=== PATIENT | female | born 1950 | race Caucasian/White ===

== ENCOUNTER 2022-01-09 13:09 | Emergency (ER) | payer OTHER, MEDICARE ==
[~2022-01-09] VITALS: Ht 170.2 cm; Wt 102.1 kg
== END 2022-01-09 14:47 | disposition home or self-care (01) ==
LOC: ER 13:09
DX: S06.0X0A Concussion without loss of consciousness, initial encounter (principal); S20.02XA Contusion of left breast, initial encounter; R23.4 Changes in skin texture; W01.0XXA Fall on same level from slipping, tripping and stumbling without subsequent striking against object, initial encounter
CPT/HCPCS: 70450; 99283-25

== ENCOUNTER 2022-01-17 12:40 | Inpatient (IN) | payer OTHER, MEDICARE ==
[~2022-01-17] VITALS: Ht 167.6 cm; Wt 115.6 kg
[2022-01-17 14:14] LABS: Source, Urine Foley catheter
[2022-01-17 14:18] LABS: Bilirubin, Urine Neg (Neg); Blood, Urine Neg (Neg); Glucose Qualitative, Urine Neg (Neg); Ketones, Urine Neg (Neg); Leukocyte Esterase, Urine Neg (Neg); Nitrite, Urine Neg (Neg); Protein, Urine 1+ (Neg); Urobilinogen, Urine NORM (Normal)
[2022-01-17] MEDS ORDERED: AMLO10 PO (14:22)
[2022-01-17] MEDS ORDERED: FLUT.05NI (14:23)
[2022-01-17] MEDS ORDERED: SERT50 PO (14:23)
[2022-01-17] MEDS ORDERED: LISI20 PO (14:23)
[2022-01-17] MEDS ORDERED: FURO20 PO (14:23)
[2022-01-17 14:24] LABS: Appearance, Urine Clear (Clear); Color, Urine Pale Yellow (P-Yellow)
[2022-01-17] MEDS ORDERED: METF500C PO (14:24)
[2022-01-17] MEDS ORDERED: SPIR50 PO (14:24)
[2022-01-17] MEDS ORDERED: OMEP20ER PO (14:24)
[2022-01-17] MEDS ORDERED: ATOR10 PO (14:24)
[2022-01-17 16:04] LABS: Albumin, Blood 3.5 g/dL (3.4-5.0); Albumin/Globulin Ratio 1.2 (0.8-1.8); Bilirubin, Total 0.3 mg/dL (0.1-1.0); Bun/Creatinine Ratio 19.5 (12.0-20.0); Calcium, Blood 8.6 mg/dL (8.5-10.1); Creatinine, Blood 1.18 mg/dL (0.40-1.00); Globulin, Blood 2.8 g/dL (2.2-4.0); Potassium, Blood 3.7 mmol/L (3.5-5.5); Total Protein, Blood 6.3 g/dL (6.4-8.2)
--- NOTE | 2022-01-17 16:36 | NUR ---
PT ARRIVED TO THE ROOM VIA GURNEY. PT IS PAINFUL AFTER TRANSFER TO BED, SHE IS TEARFUL. FAMILY AT BEDSIDE FOR COMFORT. WILL CONTINUE TO MONITOR.
--- NOTE | 2022-01-17 16:45 | NUR ---
UNABLE TO ASSESS PT'S POSTERIOR FOR PRESSURE INJURIES OR WOUNDS AT TIME OF ADMIT R/T INTOLERANCE OF MOVEMENT A RESULT OF PAIN. PT UNABLE TO TOLERATE REPOSITIONING EVEN WHEN PRE-MEDICATED FOR MOVEMENT.
--- NOTE | 2022-01-17 18:15 | NUR ---
PT HAS A 2.4 SECOND PAUSE IN HER HEART RATE. PT ASYMPTOMATIC.
[2022-01-17 18:17] LABS: BASOPHILS ABSOLUTE AUTO 0.04 K/mm3 (0.00-0.23); BASOPHILS PERCENT AUTO 0 % (0-2); EOSINOPHILS ABSOLUTE AUTO 0.04 K/mm3 (0.00-0.68); EOSINOPHILS PERCENT AUTO 0 % (0-6); Hematocrit 32.1 % (33.0-51.0); Hemoglobin 10.2 g/dL (11.5-16.0); IMMATURE GRAN ABSOLUTE AUTO 0.09 K/mm3 (0.00-0.10); IMMATURE GRAN PERCENT AUTO 1 % (0-1); LYMPHOCYTES ABSOLUTE AUTO 1.48 K/mm3 (0.84-5.20); LYMPHOCYTES PERCENT AUTO 13 % (21-46); MONOCYTES ABSOLUTE AUTO 0.77 K/mm3 (0.16-1.47); MONOCYTES PERCENT AUTO 7 % (4-13); Mean Corpuscular HGB 30.2 pg (26.0-34.0); Mean Corpuscular HGB Conc 31.8 g/dL (31.5-36.5); Mean Corpuscular Volume 95 fL (80-100); Mean Platelet Volume 9.6 fL (9.1-12.4); NEUTROPHILS ABSOLUTE AUTO 8.68 K/mm3 (1.96-9.15); NEUTROPHILS PERCENT AUTO 78 % (41-73); Platelet Count 194 K/mm3 (150-400); RDW Coefficient Variation 13.6 % (11.7-14.2); RDW Standard Deviation 47.5 fL (35.1-46.3); Red Blood Cell Count 3.38 M/mm3 (3.80-5.20)
[2022-01-17 18:35] LABS: International Normalized Ratio 1.04; Prothrombin Time Results 10.9 Sec (9.7-11.5)
[2022-01-17] MEDS ORDERED: Cyclobenzaprine5 MG PO (19:24)
--- NOTE | 2022-01-17 19:39 | NUR ---
SHIFT SUMMARY PAIN HAS BEEN DIFFICULT TO MANAGE SINCE PT ARRIVED TO THE ROOM. SHE HAS REQUIRED IV PAIN MEDICATION AND FLEXERIL. BUCKS TRACTION IN PLACE FOR COMFORT AND TO DECREASE SPASMS. DR. ENG ROUNDED ON PT THIS EVENING, PLAN FOR SURGERY TOMORROW AND NPO AFTER MN. FAMILY WAS PRESENT AT THE BEDSIDE FOR SUPPORT. REPORT GIVEN TO MENDY FAULKNER.
[2022-01-17] MEDS ORDERED: Robaxin750 MG (22:00)
[2022-01-17 22:29] LABS: Influenza A, PCR NEGATIVE (NEGATIVE); Influenza B, PCR NEGATIVE (NEGATIVE); Resp Syncytial Virus, PCR NEGATIVE (NEGATIVE); SARS-Cov-2 (COVID-19) PCR, MMC NEGATIVE (NEGATIVE)
--- NOTE | 2022-01-18 04:20 | NUR ---
SUMMARY PT PAIN HAS BEEN MANAGED VERY WELL THROUGHOUT SHIFT. PT HAS BEEN SLEEPING COMFORTABLY T/ OUT SHIFT. PT REMAINS IN BUCKS TRACTION. PT STANFORD DRAINING TO GRAVITY. PT CURRENTLY SLEEPING IN NO DISTRESS. CALL LIGHT IN REACH.
[2022-01-18 04:44] LABS: Hematocrit 28.8 % (33.0-51.0); Hemoglobin 9.2 g/dL (11.5-16.0); Mean Corpuscular HGB Conc 31.9 g/dL (31.5-36.5); Mean Corpuscular Volume 94 fL (80-100); Mean Platelet Volume 9.8 fL (9.1-12.4); Platelet Count 174 K/mm3 (150-400); RDW Coefficient Variation 13.6 % (11.7-14.2); RDW Standard Deviation 46.5 fL (35.1-46.3); Red Blood Cell Count 3.07 M/mm3 (3.80-5.20); White Blood Cell Count 6.93 K/mm3 (4.00-11.30)
[2022-01-18 05:17] LABS: Albumin, Blood 3.1 g/dL (3.4-5.0); Albumin/Globulin Ratio 1.1 (0.8-1.8); Bilirubin, Total 0.7 mg/dL (0.1-1.0); Bun/Creatinine Ratio 18.1 (12.0-20.0); Calcium, Blood 8.6 mg/dL (8.5-10.1); Creatinine, Blood 1.38 mg/dL (0.40-1.00); Globulin, Blood 2.7 g/dL (2.2-4.0); Total Protein, Blood 5.8 g/dL (6.4-8.2)
--- NOTE | 2022-01-18 12:42 | NUR ---
DR. NEVILLE NOTIFIED THAT PT HAD A 2.4 SECOND PAUSE IN HER HEART RHYTHM 01/17/22 AT 1811. PT WAS ASYMPTOMATIC. WILL CONTINUE TO MONITOR FOR FUTHER PAUSES/TELE EVENTS. NO FURTHER EVENTS PER KATIA DEVINE PLODDING OPERATOR.
--- NOTE | 2022-01-18 15:41 | NUR ---
PT LEFT ROOM FOR DAY SURGERY AT THIS TIME. DAY MAINTENANCE SHOP MANAGER NOTIFIED THAT PT HAD A 2.4 SECOND PAUSE IN HEART RHYTHM YESTERDAY BUT NO EVENTS SINCE THAT TIME. DR. KELIN FOREMAN AND DR. ENG WAS ALSO NOTIFIED.
--- NOTE | 2022-01-18 17:34 | NUR ---
SHIFT SUMMARY PT IS IN SURGERY AT THIS TIME. PAIN HAS BEEN MANAGED WITH MORPHINE, FLEXERIL AND OXYCODONE THIS SHIFT. BUCKS TRACTION HAS ALSO HELPED TO REDUCE PAIN AND SPASMS. PT HAS BEEN DROWSY BUT ORIENTED T/O THE DAY. PT IS UNABLE TO TOLERATE REPOSITIONING R/T PAIN EVEN WHEN PREMEDICATED. FAMILY HAS BEEN AT THE BEDSIDE FOR SUPPORT.
--- NOTE | 2022-01-18 22:27 | NUR ---
1929 RECEIVED PT. FROM RECOVERY. STARTED ON LIQUID DIET, PT. TOLERATED WELL. DINNER SERVED GIVEN TO PT. WHICH PT ATE SOME, TOLERATED WELL. 2209 PT. NOTED SNORING & O2 SAT DROPPED TO 89% ON 2 L VIA NC, O2 RAISED TO 3 L WITH SAT OF 90%, RAISED O2 TO 4 L WHICH PT. SAID SHE IS FINE, O2 SAT AT 93% - 95%.
--- NOTE | 2022-01-18 22:33 | NUR ---
2149 ARIANNA SIGN ARTIST CALLED TO NOTIFY OF 12 BEATS VTACH WHICH WAS ONLY READING 1 LEAD, I FIXED LEAD CONNECTIONS & ASKED SIGN ARTIST HOW IT WAS DOING, PER SIGN ARTIST " IT IS READING WONDERFUL". BROUGHT UP SITUATION TO ED FAULKNER ( COORDINATOR & TO CN WELL, IF I NEEDED TO CALL MD FOR THIS, I WAS TOLD BY BOTH " NO ", WILL CONTINUE TO MONITOR. PT. WAS NOTED ASYMPTOMATIC & DENIES ANY CHEST PAIN, SOB.
--- NOTE | 2022-01-19 02:40 | NUR ---
URINE OUTPUT ACCIDENTALLY ENTERED AT VOIDED AMOUNT, IT IS SUPPOSE TO BE AT THE CATHETER OUTPUT OF 280 ML.
--- NOTE | 2022-01-19 02:41 | NUR ---
O2 LOWERED TO 3 L VIA NC, O2 SAT OF 93%.
--- NOTE | 2022-01-19 02:49 | NUR ---
SHIFT SUMMARY: PT. AOX4, COMPLAINTS OF R HIP PAIN MEDICATED PER EMAR. PT. SLEEPING WELL, NOTED TALKING WILE ASLEEP SEVERAL TIMES, WHEN PT. WOKE UP SHE TOLD ME SHE DOES THAT A LOT OF TIMES WHEN SLEEPING. FREQUENT ROUNDS DONE. PT. REPOSITIONS HER UPPER PART OF THE BODY BY HERSELF. ABLE TO MAKE NEEDS KNOWN, EDUCATED ON CALLING FOR ANY NEED USING THE CALL LIGHT, PT. VERBALIZED UNDERSTANDING, CLWR.POLAR PACK TO R HIP. O2 LOWERED AT 2L/MIN. WITH SAT 92%. NO S/S OF RESP./CV DISTRESS NOTED. APPEARS SLEEPING COMFORTABLY WITH UNLABORED BREATHING.WILL CONTINUE TO MONITOR.
--- NOTE | 2022-01-19 04:30 | NUR ---
PT. REFUSED TO BE TURNED, PT. CAN MOVE HER UPPER BODY & REPOSITION HERSELF. CATHETER CARE DONE WITH READYCLEANSE WIPES, PT. TOLERATED WELL.
[2022-01-19 04:50] LABS: Hematocrit 27.3 % (33.0-51.0); Hemoglobin 8.6 g/dL (11.5-16.0); Mean Corpuscular HGB 29.8 pg (26.0-34.0); Mean Corpuscular HGB Conc 31.5 g/dL (31.5-36.5); Mean Corpuscular Volume 95 fL (80-100); Platelet Count 157 K/mm3 (150-400); RDW Coefficient Variation 13.6 % (11.7-14.2); RDW Standard Deviation 46.4 fL (35.1-46.3); Red Blood Cell Count 2.89 M/mm3 (3.80-5.20); White Blood Cell Count 11.84 K/mm3 (4.00-11.30)
[2022-01-19 05:11] LABS: Bun/Creatinine Ratio 19.4 (12.0-20.0); Calcium, Blood 8.3 mg/dL (8.5-10.1); Creatinine, Blood 1.34 mg/dL (0.40-1.00); Potassium, Blood 4.4 mmol/L (3.5-5.5)
--- NOTE | 2022-01-19 13:44 | NUR ---
01/19/22 1344 Marissa Moore VERIFICATIONS: EDIT CHART.
--- NOTE | 2022-01-19 17:19 | NUR ---
INSULIN ALL DOSES OF INSULIN ADMINISTERED TODAY BY A BEHAVIOR SUPPORT SPECIALIST WERE VERIFIED BY THIS RN AND A SECOND RN NOTED IN THE ADMINISTRATION LOG.
--- NOTE | 2022-01-19 19:15 | NUR ---
SHIFT SUMMARY POD1 R HIP FX REPAIR, A/OX4, VSS, TOLERATING PO, PAIN MANAGED WITH SOME IMPROVEMENT TODAY USING ONLY 1 DOSE OF IV MORPHINE, PT WAS A LITTLE ANXIOUS AT THE BEGINNING OF THE SHIFT BUT THIS WAS IMPROVED AFTER WORKING WITH PT/OT AND IMPROVED PAIN. NO ACUTE EVENTS THIS SHIFT, CALL LIGHT IN REACH, REPORT GIVEN TO MENDY FAULKNER.
[2022-01-20 04:30] LABS: Hematocrit 23.5 % (33.0-51.0); Hemoglobin 7.3 g/dL (11.5-16.0); Mean Corpuscular HGB 29.4 pg (26.0-34.0); Mean Corpuscular HGB Conc 31.1 g/dL (31.5-36.5); Mean Corpuscular Volume 95 fL (80-100); Mean Platelet Volume 10.4 fL (9.1-12.4); Platelet Count 137 K/mm3 (150-400); RDW Coefficient Variation 13.8 % (11.7-14.2); RDW Standard Deviation 47.5 fL (35.1-46.3); Red Blood Cell Count 2.48 M/mm3 (3.80-5.20); White Blood Cell Count 9.62 K/mm3 (4.00-11.30)
--- NOTE | 2022-01-20 04:39 | NUR ---
COBOL PROGRAMMER SUMMARY NO ACUTE CHANGES THIS SHIFT. PT AAOX4 AND PLEASANT. MEDICATED FOR HIP PAIN X1 AT BEDTIME WITH GOOD PAIN RELIEF. IV ABX ORDERED. PT HAS SLEPT WELL THROUGH THE NIGHT. STANFORD CATH DRAINING YELLOW URINE. BP ON THE SOFT SIDE BUT VITALS STABLE. WILL CONTINUE TO MONITOR.
[2022-01-20 04:47] LABS: Bun/Creatinine Ratio 20.6 (12.0-20.0); Calcium, Blood 8.1 mg/dL (8.5-10.1); Creatinine, Blood 1.6 mg/dL (0.40-1.00); Potassium, Blood 3.9 mmol/L (3.5-5.5)
--- NOTE | 2022-01-20 09:39 | NUR ---
AGREE WITH ADMINISTRATIVE TECHNICIAN ASSESSMENT
[2022-01-20 09:51] LABS: Percent Saturation 8.2 % (15.0-50.0)
--- NOTE | 2022-01-20 14:10 | NUR ---
discharged to home
--- NOTE | 2022-01-20 16:22 | NUR ---
1430 NOTIFIED BY PCU OPERATOR SUPPLY THAT PATIENT HEARTRATE IS 130-140 AND IS IN AFIB. PATIENT 2 PERSON STAND PIVOT RETURN TO BED. SPOKE WITH DR NEVILLE AND NEW ORDERS RECEIVED
--- NOTE | 2022-01-20 16:28 | NUR ---
1455 BP 83/56. HR 120'S TO 140'S. PT WITH HOB FLAT. PT DENIES DIZZINESS, SOB. SPOKE WITH DR NEVILLE REGARDING HR AND BP. ORDERS RECEIVED
--- NOTE | 2022-01-20 16:30 | NUR ---
1545 TRANSFERRED VIA BED TO PCU 18. PTS DAUGHTERS PRESENT AT TIME OF PATIENT TRANSFER.
--- NOTE | 2022-01-20 16:36 | NUR ---
CHANGED AQUACEL DRESSING PER DOCTOR'S ORDERS. SURGICAL INCISION ASSESSED. SKIN IS PINK WITH SOME BRUISING. MILD EDEMA IS SEEN. BRANDON ARE INTACT. INCISION IS CLEAN WITH NO EVIDENCE OF INFECTION. PATIENT TOLERATED DRESSING CHANGE WELL.
--- NOTE | 2022-01-20 17:45 | NUR ---
1249 ADMINISTERED 1 TABLET OF 5MG ROXICODONE. UNABLE TO WASTE IN PYXIS
--- NOTE | 2022-01-20 18:31 | NUR ---
PT ARRIVED TO [facility] APROX 1550 THIS AFTERNOON FOR DX OF AFIB RVR. HR 110-120 ON ARRIVAL. 1L NS BOLUS RUNNIG. SEE VS. PT IS A&OX4 WITH FAMILY AT BEDSIDE. FLUID BOLUS COMPLETED AND HR BEGAN INCREASING TO 130-140s, DR NEVILLE CONTACTED AT 1709 AND ORDERS FOR CARDIZEM GTT RECEIVED. UNABLE TO START 2ND IV AT THIS TIME. PT MEDICATED FOR PAIN PER EMAR. CARDIZEM GTT STARTED ONCE RECEIVED FROM THE PHARMACY. DR NEVILLE AT BEDSIDE TO EVALUATE AND SPEAK WITH PT AND HER FAMILY. PT STARTED ON XERALTO, FIRST DOSE GIVEN TONIGHT PER EMAR. WILL CONTINUE TOMONITOR AND GIVE REPORT TO ONCOMING RN.
--- NOTE | 2022-01-20 22:37 | NUR ---
PT TX FROM SURG FLOOR TO PCU FOR LOW BP AND NEW AFIB RVR. PT PLACED ON CARD GTT AT 15MG/HR, AND STARTED PO METPROLOL. THIS RN GAVE THE METOPROLOL, AND SHORTLY AFTER ADMINISTRATION, PT BEGAN TO HAVE PAUSES THAT INITIALLY STARTED OUT AT ABOUT 2 SECONDS EACH. PT CLAIMS TO BE ASYMPTOMATIC, AND BP REMAINS SLIGHTLY LOW. PAUSES CONTINUED TO HAPPEN, AND WOULD BE FOR A LONGER AMOUNT OF TIME. RN DECIDED TO TURN OFF CARD GTT ALTOGETHER. TELE NOTIFIED RN OF LONGEST PAUSE OF 5.39 SECONDS - PT STILL ASYMPTOMATIC. WILL CONTINUE TO KEEP CARD GTT OFF AT THIS TIME. WILL CONTINUE TO MONTIOR.
[2022-01-21 03:36] LABS: Mean Corpuscular HGB 29.8 pg (26.0-34.0); Mean Corpuscular HGB Conc 31.8 g/dL (31.5-36.5); Mean Corpuscular Volume 94 fL (80-100); Mean Platelet Volume 10.4 fL (9.1-12.4); Platelet Count 142 K/mm3 (150-400); Red Blood Cell Count 2.35 M/mm3 (3.80-5.20); White Blood Cell Count 8.17 K/mm3 (4.00-11.30)
[2022-01-21 03:54] LABS: Calcium, Blood 7.4 mg/dL (8.5-10.1); Creatinine, Blood 1.65 mg/dL (0.40-1.00); Potassium, Blood 3.8 mmol/L (3.5-5.5)
--- NOTE | 2022-01-21 06:18 | NUR ---
SHIFT SUMMARY PT RESTED WELL THROUGH THE NIGHT. ALERT AND ORIENTED, ABLE OT MAKE NEEDS KNOWN. COOPERATIVE WITH PLAN OF CARE. TELE READS AFIB - RATE BETTER CONTROLLED AT 80-90'S. STOPPED DILT GTT - SEE PREVIOUS NOTE. PO METOPROLOL. VOIDS TO BED SYLVESTER, INCISIONAL SITE/DRESSING C/D/I. MINIMAL PAIN - SEE EMAR. NO BM. IVF. SATS >93% ON 3-4LNC. VSS. CALL LIGHT WITHIN REACH, BED IN LOWEST POSITOIN. WILL CONTINUE TO MONITOR.
[2022-01-21 08:48] LABS: Free Thyroxine 1.45 ng/dL (0.70-1.60)
[2022-01-21 08:50] LABS: Triiodothyronine, Free 1.37 pg/mL (2.18-3.98)
--- NOTE | 2022-01-21 16:01 | NUR ---
SHIFT SUMMARY Pt has been a/o x 4 today. This morning she was fatigued and weak but still oriented. Dr Penn came to see her and ordered 1 unit of blood and iron both of which were infused after IV access was established. Her daughters arrived first thing this morning, they coordinated a notary to come to the room for their mom to sign some paperwork that they brought with them. The daughters were very assertive with their need for updated information about their mom. After their questions were answered they left and have since returned and have been updated again and are now at the bedside. Pt's aquacell dressings were changed as they were saturated with serous drainage. A powerglide was placed this morning and remains patent with IV fluids running as ordered. Since the pt is much more awake and feeling better this afternoon, this nurse reached out to PT who came and worked with the pt on some exercises in the bed. Around lunch time the pt had not voided and was placed on the bedpan, she was not able to void on the dickson but after it was removed she had an incontinent episode and linens were changed and a clean brief was placed, the pt reports that at baseline she is continent of B/B. She has had a poor appetite thus far today but reports that she does feel more hungry this afternoon. She is able to make her needs known and calls for help when needed.
[2022-01-21 17:36] LABS: Hematocrit 25.6 % (33.0-51.0); Hemoglobin 8.1 g/dL (11.5-16.0)
--- NOTE | 2022-01-22 06:06 | NUR ---
SHIFT SUMMARY: SINUS RHYTHYM WITH NO EVENTS ON TELEMETRY OVERNIGHT. PT A&O WITH OCCASSIONAL UNUSUAL REMARKS AND PT SLEEP-TALKS. PT REMOVED O2 NASAL CANULA REPORTING DRY, IRRITATED NOSE AND DESATTED TO 78%. O2 WAS REPLACED WITH HUMIDIFICATION. PT RECOVERED QUICKLY AND WAS ASYMPTOMATIC. SURGICAL INCISION IS CLEAN, BRANDON INTACT, NO REDNESS OR LOCALIZED WARMTH NOTED ON ASSESSMENT. DRESSING WAS CHANGED DUE TO PREVIOUS DRESSING BEING SATURATED WITH CLEAR DRAINAGE. PT DID NOT GET UP FROM BED OVERNIGHT, BUT ROLLS WELL. PT HAS NOT HAD BM SINCE 01/16. PT REPORTS FEELING THE NEED TO HAVE BM AND BOWEL SOUNDS ARE ACTIVE, BUT SHE IS UNABLE TO GO. PAIN WAS WELL CONTROLLED WITH JUST ONE OXYCODONE OVERNIGHT.
[2022-01-22 06:55] LABS: Hematocrit 22.4 % (33.0-51.0); Hemoglobin 7.1 g/dL (11.5-16.0); Mean Corpuscular HGB 29.3 pg (26.0-34.0); Mean Corpuscular HGB Conc 31.7 g/dL (31.5-36.5); Mean Corpuscular Volume 93 fL (80-100); Mean Platelet Volume 9.9 fL (9.1-12.4); Platelet Count 166 K/mm3 (150-400); RDW Coefficient Variation 15.9 % (11.7-14.2); RDW Standard Deviation 53.8 fL (35.1-46.3); Red Blood Cell Count 2.42 M/mm3 (3.80-5.20)
[2022-01-22 07:15] LABS: Calcium, Blood 7.9 mg/dL (8.5-10.1); Creatinine, Blood 1.31 mg/dL (0.40-1.00); Magnesium, Blood 2.1 mg/dL (1.6-2.4); Potassium, Blood 3.7 mmol/L (3.5-5.5)
[2022-01-22 16:53] LABS: Hematocrit 27.6 % (33.0-51.0); Hemoglobin 8.9 g/dL (11.5-16.0)
--- NOTE | 2022-01-22 17:11 | NUR ---
SHIFT SUMMARY Pt has been a/o x 4 all day. She has been much more awake and has had a better appetite today as well. She did receive another unit of RBCs this morning along with her IV iron. IV fluids have been DCd as she has had good PO fluid intake. Her chest xray and CT were both done and Dr Penn discussed the results with the 2 daughters. Pt has been voiding on the bedpan and calling appropriately when she needs to go. PT worked with her today as well. This afternoon she did c/o pain to her right hip and was medicated per emar. Shortly after that she was found sitting on the side of the bed and the pt reported that she "just needed to move around". The nurse reminded her to call for assist if she needs to move around and that she is still toe touch weight bearing. The pt was able to lay back in the bed and re-position herself in bed. She seems to be improving today. Her daughters are at the bedside and have been updated with todays events and have spoken with Dr Penn. Pt is able to make her needs known and has her call light in reach.
[2022-01-23 03:39] LABS: Hematocrit 26.8 % (33.0-51.0); Hemoglobin 8.6 g/dL (11.5-16.0); Mean Corpuscular HGB Conc 32.1 g/dL (31.5-36.5); Mean Corpuscular Volume 90 fL (80-100); Mean Platelet Volume 9.9 fL (9.1-12.4); NRBC ABSOLUTE 0.03 K/mm3 (0.00-0.02); NRBC Auto 0.3 /100 WBC (0.0-0.2); Platelet Count 186 K/mm3 (150-400); RDW Coefficient Variation 15.5 % (11.7-14.2); RDW Standard Deviation 50.5 fL (35.1-46.3); Red Blood Cell Count 2.97 M/mm3 (3.80-5.20); White Blood Cell Count 8.71 K/mm3 (4.00-11.30)
[2022-01-23 04:00] LABS: Bun/Creatinine Ratio 26.3 (12.0-20.0); Calcium, Blood 8.5 mg/dL (8.5-10.1); Creatinine, Blood 1.14 mg/dL (0.40-1.00); Potassium, Blood 3.6 mmol/L (3.5-5.5)
--- NOTE | 2022-01-23 04:09 | NUR ---
SHIFT SUMMARY: NO ACUTE CHANGES OVERNIGHT. VSS. PT PAIN CONTROLLED WITH 2 DOSES OXYCODONE. PT WAS ABLE TO PIVOT TO BEDSIDE COMMODE WITH 2 ASSIST, WITHIN LIMITS OF TOE TOUCH WEIGHT-BEARING. PT CONTINUES TO BE UNABLE TO HAVE BM. IT HAS BEEN 1 WK AND AGGRESSIVE BOWEL MANAGEMENT SHOULD BE INITIATED-WILL PASS ALONG TO DAY SHIFT.
--- NOTE | 2022-01-23 16:42 | NUR ---
SHIFT SUMMARY Pt has been a/o x 4 today with some mild discomfort in her right hip. She has been talking in her sleep as she dozes off. Dr Penn ordered bowel meds this morning which were given and she was able to have a small BM on the bed dickson. She continues to eat small amounts of her meals. Since her CBGs have been WNL Dr Penn Dcd her insulin and blood sugar checks and the pt reports that she does not take insulin at home. This morning her heart rate was elevated and the Dr made changes to her meds as reflected on the EMAR and this after noon she has converted to sinus rhythm @ [address] Dr Penn was notified. Her daughters have been here and been updated and stated that they are thankful for the care that she is receiving here. The pt has been calling appropriately and has her call light in reach.
[2022-01-24 04:48] LABS: Hematocrit 27.8 % (33.0-51.0); Hemoglobin 8.8 g/dL (11.5-16.0); Mean Corpuscular HGB 28.9 pg (26.0-34.0); Mean Corpuscular HGB Conc 31.7 g/dL (31.5-36.5); Mean Corpuscular Volume 91 fL (80-100); Mean Platelet Volume 9.8 fL (9.1-12.4); NRBC ABSOLUTE 0.03 K/mm3 (0.00-0.02); NRBC Auto 0.3 /100 WBC (0.0-0.2); Platelet Count 211 K/mm3 (150-400); RDW Coefficient Variation 15.6 % (11.7-14.2); RDW Standard Deviation 51.4 fL (35.1-46.3); Red Blood Cell Count 3.05 M/mm3 (3.80-5.20); White Blood Cell Count 8.68 K/mm3 (4.00-11.30)
[2022-01-24 05:13] LABS: Bun/Creatinine Ratio 26.6 (12.0-20.0); Calcium, Blood 8.8 mg/dL (8.5-10.1); Creatinine, Blood 1.09 mg/dL (0.40-1.00); Potassium, Blood 3.6 mmol/L (3.5-5.5)
--- NOTE | 2022-01-24 06:11 | NUR ---
INTERMITTENT CONFUSION. PT REPORT PAIN MEDICATED PER eMAR, RATE HER PAIN 3/10. ON 4L OXYGEN maintained >91. PT RAINA CHEST/PRESSURE, ON TELE SINUS RYTHYME. PT ENCOURAGE TO USE IS. STOOL SAMPLE PENDING. PT HAD KELELY BATH WITH LINEN CHANGED, COMFORT LEVEL INCREASED. CALL LIGHT WITHIN REACH AND SIDE RAIL UP X3.
--- NOTE | 2022-01-24 17:43 | NUR ---
REPORT TO LUICE BERRY ON SURGICAL TO ASSUME CARE FOR IN HOUSE TRANSFER. A/A/OX3 DURING SHIFT. REPOSITIONS SELF IN BED. 2 PERSON ASSIST TO BEDSIDE COMMODE. VSS, 2L O2 VIA NC. FAMILY AT BEDSIDE MOST OF DAY. PAIN MEDS PER EMAR. IN HOUSE TRANSFER IN STABLE CONDITION. AQUACIL TO RIGHT HIP C/D/I.
--- NOTE | 2022-01-24 18:09 | NUR ---
TRANSFER/SHIFT SUMMARY PT ARRIVED TO UNIT FROM PCU. PT AA0X4, 2L OXYGEN AT THIS TIME. WILL WEAN DOWN TOLERATED. AQUACEL IN PLACE TO R HIP. CHANGED AT THIS TIME. LARGE AMOUNT SHADOWING ON ARRIVAL TO UNIT. SIGNIFICANT BRUISING TO R INNER THIGH. SCATTERED SOFT SPOTS AROUND SURGICAL SITE. PT HAS GOOD SENSATION TO LOWER EXTREMETIES. PPX4. PT HELPS ROLL TO BEDPAN WELL. SHE REPORTS PAIN TOLERABLE AT THIS TIME. TELE ON SR PER REPORT. PT DENIES CP OR SOB.
--- NOTE | 2022-01-24 19:01 | NUR ---
placed medipore over surgical sites. cleaned incisions. skin red around surgical site. pt reported pain with removal of aquacel, no skin damage with removal.
--- NOTE | 2022-01-25 05:05 | NUR ---
PT A&OX4, USES BEDPAN TO VIOD, AND CALLS APPROPRIATELY. ARRIVES TO FLOOR PN PREVIOUS SHIFT FROM PCU AFTER BEING ON A CARD DRIP FOR AFIB W/RVR. PT INITIALLY ON 2LNC BUT HAS BEEN ON RA ALL SHIFT, HAS BEEN >90% THROUG THE NIGHT. AT 0230 PT COMPLAINS OF SOB BUT STATES THAT IT MIGHT BE ANXIETY D/T BEING "IN A HOSPITAL BED FOR 4 DAYS." PAIN IS CONTROLLED WITH ALVA 5MG Q6H. PT IS ABLE TO MAKE NEEDS KNOWN. WILL CONTINUE TO MONITOR THIS PATIENT.
[2022-01-25 05:23] LABS: Hematocrit 31.7 % (33.0-51.0); Hemoglobin 10.2 g/dL (11.5-16.0); Mean Corpuscular HGB 29.1 pg (26.0-34.0); Mean Corpuscular HGB Conc 32.2 g/dL (31.5-36.5); Mean Corpuscular Volume 91 fL (80-100); Mean Platelet Volume 10.1 fL (9.1-12.4); NRBC ABSOLUTE 0.02 K/mm3 (0.00-0.02); NRBC Auto 0.2 /100 WBC (0.0-0.2); Platelet Count 260 K/mm3 (150-400); RDW Coefficient Variation 15.6 % (11.7-14.2); RDW Standard Deviation 49.6 fL (35.1-46.3); White Blood Cell Count 9.78 K/mm3 (4.00-11.30)
[2022-01-25 05:47] LABS: Bun/Creatinine Ratio 26.7 (12.0-20.0); Calcium, Blood 8.7 mg/dL (8.5-10.1); Creatinine, Blood 1.05 mg/dL (0.40-1.00); Magnesium, Blood 2.1 mg/dL (1.6-2.4); Potassium, Blood 3.4 mmol/L (3.5-5.5)
--- NOTE | 2022-01-25 06:16 | NUR ---
Pt HAS BEEN ON BEDPAN FREQUENTLY WITH LITTLE OR NO OUTPUT. Pt STATES SHE FEELS "GASY".
[2022-01-25] MEDS ORDERED: DOCU100 PO (11:08)
[2022-01-25] MEDS ORDERED: ACET325 PO (11:08)
[2022-01-25] MEDS ORDERED: DULCOLAX400 MG/5 M PO (11:09)
[2022-01-25] MEDS ORDERED: METO100 PO (11:09)
[2022-01-25] MEDS ORDERED: XARELTO20 MG PO (11:10)
[2022-01-25 12:33] LABS: Influenza A, PCR NEGATIVE (NEGATIVE); Influenza B, PCR NEGATIVE (NEGATIVE); Resp Syncytial Virus, PCR NEGATIVE (NEGATIVE); SARS-Cov-2 (COVID-19) PCR, MMC NEGATIVE (NEGATIVE)
--- NOTE | 2022-01-25 13:12 | NUR ---
DISCHARGE. PT LEFT FOR [facility] VIA WHEELCHAIR. PT ABLE TO TRANSFER FROM BED TO CHAIR AND BSC WITH FWW AND GB. SHE REPORTS FEELING WEAK AFTER MULTIPLE TRANSFERS BUT HAS BEEN DOING WELL. DRESSING TO R HIP REMAINS CDI. EXTRA DRESSINGS SENT TO [facility]. REPORT CALLED AT THIS TIME. PT PAIN MANAGED PER EMAR. SHE REPORTS TOLERABLE. IV REMOVED PRIOR TO DISCHARGE.
[2022-02-07] MEDS ORDERED: ASCO500 PO (11:52)
[2022-02-07] MEDS ORDERED: FERSU300 PO (11:53)
[2022-02-07] MEDS ORDERED: SENN187 PO (11:53)
[2022-02-07] MEDS ORDERED: AMLO5 PO (11:54)
== END 2022-01-25 13:07 | disposition short-term general hospital (02) | DRG 480 ==
LOC: ER 12:40 → PCU 14:54 → SURS 14:54 → ER 16:25 → PCU 01-20 15:52 → SURS 01-24 17:10
PROVIDERS: Internal Medicine; Orthopaedic Surgery; Physician Assistant; ADMIT Family Medicine
PROC: 0QS636Z Reposition Right Upper Femur with Intramedullary Internal Fixation Device, Percutaneous Approach (ICD-10-PCS; principal; 2022-01-18 15:00)
PROC: 30233N1 Transfusion of Nonautologous Red Blood Cells into Peripheral Vein, Percutaneous Approach (ICD-10-PCS; 2022-01-21)
DX: S72.121A Displaced fracture of lesser trochanter of right femur, initial encounter for closed fracture (principal); J95.821 Acute postprocedural respiratory failure; G92.8 Other toxic encephalopathy; J98.11 Atelectasis; Z20.822 Contact with and (suspected) exposure to COVID-19; Z28.21 Immunization not carried out because of patient refusal; R73.03 Prediabetes; N18.30 Chronic kidney disease, stage 3 unspecified; I12.9 Hypertensive chronic kidney disease with stage 1 through stage 4 chronic kidney disease, or unspecified chronic kidney disease; I48.91 Unspecified atrial fibrillation; D50.9 Iron deficiency anemia, unspecified; R19.09 Other intra-abdominal and pelvic swelling, mass and lump; T50.905A Adverse effect of unspecified drugs, medicaments and biological substances, initial encounter; E66.9 Obesity, unspecified; Z68.36 Body mass index [BMI] 36.0-36.9, adult; Z90.710 Acquired absence of both cervix and uterus; Z98.890 Other specified postprocedural states; Z79.84 Long term (current) use of oral hypoglycemic drugs; Z79.899 Other long term (current) drug therapy; W51.XXXA Accidental striking against or bumped into by another person, initial encounter
CPT/HCPCS: 0241U; 36415; 36430; 51702; 71045; 73502; 74177; 80048; 80053; 82728; 82947; 83540; 83550; 83735; 84145; 84439; 84443; 84481; 84484; 85014; 85018; 85025; 85027; 85610; 85730; 86850; 86900; 86901; 86923; 93005; 93010; 93306; 94762; 96374; 96375; 96376; 97110; 97162; 97165; 97530; 97535; 99284-25; A9270; C1713; C1751; C1769; J0171; J0690; J1100; J1170; J1644; J1650; J2270; J2370; J2405; J2704; J2916; J3010; J3360; J7030; J7050; J7120; P9016; Q9967

== ENCOUNTER → 2022-02-17 | Outpatient (CLI) | payer OTHER, MEDICARE ==
[~2022-02-17] MED LIST: ACET325 PO; AMLO10 PO; AMLO5 PO; ASCO500 PO; ATOR10 PO; Cyclobenzaprine5 MG PO; DOCU100 PO; DULCOLAX400 MG/5 M PO; FERSU300 PO; FLUT.05NI; FURO20 PO; LISI20 PO; METF500C PO; METO100 PO; OMEP20ER PO; Robaxin750 MG; SENN187 PO; SERT50 PO; SPIR50 PO; XARELTO20 MG PO
[2022-02-17 16:21] LABS: BASOPHILS ABSOLUTE AUTO 0.05 K/mm3 (0.00-0.23); BASOPHILS PERCENT AUTO 1 % (0-2); EOSINOPHILS ABSOLUTE AUTO 0.16 K/mm3 (0.00-0.68); EOSINOPHILS PERCENT AUTO 2 % (0-6); Hematocrit 36.2 % (33.0-51.0); Hemoglobin 11.1 g/dL (11.5-16.0); IMMATURE GRAN ABSOLUTE AUTO 0.03 K/mm3 (0.00-0.10); IMMATURE GRAN PERCENT AUTO 0 % (0-1); LYMPHOCYTES ABSOLUTE AUTO 1.88 K/mm3 (0.84-5.20); LYMPHOCYTES PERCENT AUTO 26 % (21-46); MONOCYTES ABSOLUTE AUTO 0.53 K/mm3 (0.16-1.47); MONOCYTES PERCENT AUTO 7 % (4-13); Mean Corpuscular HGB 29.2 pg (26.0-34.0); Mean Corpuscular HGB Conc 30.7 g/dL (31.5-36.5); Mean Corpuscular Volume 95 fL (80-100); Mean Platelet Volume 11.2 fL (9.1-12.4); NEUTROPHILS ABSOLUTE AUTO 4.57 K/mm3 (1.96-9.15); NEUTROPHILS PERCENT AUTO 63 % (41-73); Platelet Count 273 K/mm3 (150-400); RDW Coefficient Variation 17.7 % (11.7-14.2); RDW Standard Deviation 61.5 fL (35.1-46.3); White Blood Cell Count 7.22 K/mm3 (4.00-11.30)
[2022-02-17 17:34] LABS: Alanine Aminotransfer (ALT/SGP 36 U/L (12-78); Albumin, Blood 3.8 g/dL (3.4-5.0); Albumin/Globulin Ratio 1.2 (0.8-1.8); Alk Phos 239 U/L (50-136); Anion Gap 2 mmol/L (6-16); Aspartate Aminotrans (AST/SGOT 13 U/L (12-37); Bilirubin, Total 0.4 mg/dL (0.1-1.0); Blood Urea Nitrogen 20 mg/dL (8-24); Bun/Creatinine Ratio 21.6 (12.0-20.0); CHOL/HDL RATIO 2.3; CO2, Blood 31 mmol/L (21-32); Calcium, Blood 8.8 mg/dL (8.5-10.1); Chloride, Blood 112 mmol/L (98-108); Cholesterol 111 mg/dL (50-200); Creatinine, Blood 0.93 mg/dL (0.40-1.00); Globulin, Blood 3.1 g/dL (2.2-4.0); Glomerular Filtration Rate 60 (60-); Glucose, Blood 88 mg/dL (70-99); HDL Cholesterol 48 mg/dL (>39); LDL/HDL RATIO 0.6; Low Density Lipoprotein Chol 30 mg/dL (0-110); Potassium, Blood 2.7 mmol/L (3.5-5.5); Sodium, Blood 145 mmol/L (136-145); Total Protein, Blood 6.9 g/dL (6.4-8.2); Triglycerides 163 mg/dL (30-160); Very Low Density Lipoprot Chol 32 mg/dL (6-32)
[2022-02-17 17:40] LABS: Thyroid Stimulating Hormone 0.835 uIU/mL (0.360-4.800)
== END | disposition home or self-care (01) ==
LOC: LAB SHORT 11:50
PROVIDERS: Student in an Organized Health Care Education/Training Program
DX: Z00.00 Encounter for general adult medical examination without abnormal findings (principal); Z13.6 Encounter for screening for cardiovascular disorders; Z12.11 Encounter for screening for malignant neoplasm of colon; Z83.49 Family history of other endocrine, nutritional and metabolic diseases; Z87.81 Personal history of (healed) traumatic fracture
CPT/HCPCS: 80053; 80061; 82306; 84443; 85025

== ENCOUNTER 2022-06-09 07:43 | Day surgery (SDC) | payer MEDICARE, OTHER ==
[~2022-06-09] VITALS: Ht 167.6 cm; Wt 104.0 kg
--- NOTE | 2022-06-09 16:44 | NUR ---
ANCEF 2 GRAMS STARTED IVPB
--- NOTE | 2022-06-09 17:30 | NUR ---
PATIENT VERBALIZED UNDERSTANDING OF DISCHARGE INSTRUCTIONS AND PRECAUTIONS.PACER SITE DRESSING D&I. NO HEMMATOMA. PATIENT UP TO RESTROOM. TOLERATED WELL. DRESSED BY SELF. SLING PLACED TO RIGHT ARM A REMINDER TO NOT RAISE ARM ABOVE SHOULDER WITH INSTRUCTION FOR USE. IV SITE DCED WITH CATHETER INTACT. NO FURTHER QUESTIONS. PATIENT TRANSFERRED TO CAR VIA WHEEL CHAIR. DAUGHTER DRIVING.
== END 2022-06-09 17:30 | disposition home or self-care (01) ==
LOC: MHTC 07:43
DX: I49.5 Sick sinus syndrome (principal); I48.0 Paroxysmal atrial fibrillation; G47.30 Sleep apnea, unspecified; D50.9 Iron deficiency anemia, unspecified; I12.9 Hypertensive chronic kidney disease with stage 1 through stage 4 chronic kidney disease, or unspecified chronic kidney disease; N18.30 Chronic kidney disease, stage 3 unspecified; E78.5 Hyperlipidemia, unspecified; E87.6 Hypokalemia; E87.0 Hyperosmolality and hypernatremia
CPT/HCPCS: 33208; 71046; 99152; 99153; A9270; C1785; C1894; C1898; J0690; J1644; J2250; J3010; J7030; J7040; Q9967

== ENCOUNTER 2022-12-15 06:11 | Day surgery (SDC) | payer MEDICARE, OTHER ==
[~2022-12-15] VITALS: Ht 167.6 cm; Wt 114.2 kg
--- NOTE | 2022-12-15 06:34 | NUR ---
12/15/22 0634 Sharmaine Gonzalez AT 0629 [facility] [id number]
== END 2022-12-15 08:15 | disposition home or self-care (01) ==
LOC: ORSCSDS 06:11
PROVIDERS: Ophthalmology
PROC: 08DJ3ZZ Extraction of Right Lens, Percutaneous Approach (ICD-10-PCS; principal; 2022-12-15 07:30)
DX: H25.11 Age-related nuclear cataract, right eye (principal); Z96.1 Presence of intraocular lens; I12.9 Hypertensive chronic kidney disease with stage 1 through stage 4 chronic kidney disease, or unspecified chronic kidney disease; N18.30 Chronic kidney disease, stage 3 unspecified; E78.5 Hyperlipidemia, unspecified; E87.6 Hypokalemia; F32.A Depression, unspecified; D50.9 Iron deficiency anemia, unspecified; I48.91 Unspecified atrial fibrillation; Z95.0 Presence of cardiac pacemaker; E66.9 Obesity, unspecified; Z68.41 Body mass index [BMI] 40.0-44.9, adult; Z79.01 Long term (current) use of anticoagulants; Z79.899 Other long term (current) drug therapy
CPT/HCPCS: J2001; J2250; J3010; J3301; J7040; V2632

== ENCOUNTER → 2023-11-07 | Outpatient (CLI) | payer MEDICARE | LOC: LAB SHORT 12:00 → LAB 12:00 | DX: D48.5 Neoplasm of uncertain behavior of skin (principal) | CPT/HCPCS: 88305 ==

== ENCOUNTER 2024-10-19 09:07 | Inpatient (IN) | payer MEDICARE ==
[~2024-10-19] VITALS: Ht 167.6 cm; Wt 122.5 kg
[2024-10-19] VITALS (9 sets, daily range): BP systolic 118–187; BP diastolic 67–135
[2024-10-19 09:41] LABS: BASOPHILS ABSOLUTE AUTO 0.04 K/mm3 (0.00-0.23); BASOPHILS PERCENT AUTO 1 % (0-2); EOSINOPHILS ABSOLUTE AUTO 0.04 K/mm3 (0.00-0.68); EOSINOPHILS PERCENT AUTO 1 % (0-6); Hematocrit 37.3 % (33.0-51.0); Hemoglobin 12.5 g/dL (11.5-16.0); IMMATURE GRAN ABSOLUTE AUTO 0.02 K/mm3 (0.00-0.10); IMMATURE GRAN PERCENT AUTO 0 % (0-1); LYMPHOCYTES ABSOLUTE AUTO 1.45 K/mm3 (0.84-5.20); LYMPHOCYTES PERCENT AUTO 24 % (21-46); MONOCYTES ABSOLUTE AUTO 0.42 K/mm3 (0.16-1.47); MONOCYTES PERCENT AUTO 7 % (4-13); Mean Corpuscular HGB 30.9 pg (26.0-34.0); Mean Corpuscular HGB Conc 33.5 g/dL (31.5-36.5); Mean Corpuscular Volume 92 fL (80-100); Mean Platelet Volume 10.7 fL (9.1-12.4); NEUTROPHILS ABSOLUTE AUTO 4.19 K/mm3 (1.96-9.15); NEUTROPHILS PERCENT AUTO 68 % (41-73); Platelet Count 193 K/mm3 (150-400); RDW Coefficient Variation 14.6 % (11.7-14.2); RDW Standard Deviation 49.1 fL (35.1-46.3); Red Blood Cell Count 4.05 M/mm3 (3.80-5.20); White Blood Cell Count 6.16 K/mm3 (4.00-11.30)
[2024-10-19 10:01] LABS: Albumin, Blood 3.5 g/dL (3.4-5.0); Albumin/Globulin Ratio 1.2 (0.8-1.8); Bilirubin, Total 1.1 mg/dL (0.1-1.0); Bun/Creatinine Ratio 13.9 (12.0-20.0); Calcium, Blood 8.7 mg/dL (8.5-10.1); Creatinine, Blood 1.15 mg/dL (0.40-1.00); Potassium, Blood 2.9 mmol/L (3.5-5.5); Total Protein, Blood 6.5 g/dL (6.4-8.2)
[2024-10-19] MEDS ORDERED: Furosemide 10 MG / ML 2ML Vial IV ONE (11:15)
[2024-10-19] MEDS ORDERED: Potassium Acetate 20 MEQ in NS 100 ML IV SCH (11:30)
[2024-10-19] MEDS ORDERED: Potassium Chloride 20 MEQ/15 ML UDC PO ONE (11:30)
[2024-10-19] MEDS ORDERED: Potassium Chl 20MEQ/Water100ML 100 ML IV SCH (11:35)
[2024-10-19 11:37] LABS: Phosphorus, Blood 2.5 mg/dL (2.5-4.9)
[2024-10-19] MEDS ORDERED: POTCHL20ER PO (11:41)
[2024-10-19] MEDS ORDERED: BUPR150ER PO (11:42)
[2024-10-19] MEDS ORDERED: Ondansetron HCl 2 MG / ML 2ML Vial IV PRN (12:15)
[2024-10-19] MEDS ORDERED: Acetaminophen 325 MG TABLET PO PRN (12:15)
[2024-10-19] MEDS ORDERED: HydrALAZINE HCl 20 MG / ML 1ML Vial IV PRN (12:15)
[2024-10-19] MEDS ORDERED: FLU VACC TS2024-25(6MOS UP)/PF 45 MCG/0.5 ML SYRINGE IM PRN (12:20)
[2024-10-19] MEDS ORDERED: SM CALCIUM PO (13:19)
[2024-10-19] MEDS ORDERED: VITAMIN D31000 UNI1 PO (13:19)
[2024-10-19] MEDS ORDERED: ALBU90OI6 INH (13:22)
[2024-10-19] MEDS ORDERED: MISCINPPO PO (13:23)
--- NOTE | 2024-10-19 14:35 | NUR ---
PT IS A NEW ADMIT THIS AFTERNOON THE PT WAS SETTLED IN THE ROOM BY VP PUBLISHER DEVELOPMENT GABE, AND LOGAN FAULKNER. THE PT IS A&OX4, CALLS APPROPRAITELY, AND MAKES HER NEEDS KNOWN. AT BASELINE THE PT STATES SHE LIVES ON HER OWN, PREFORMS ALL OF HER OWN ADL'S, AND USES A WALKER OCCASIONALLY TO GET AROUND. THE PT CAME UP ON 2L NC W/O ANY SOB. SHE STATES THAT SHE HAS SOB W/ ACTIVITY. SHE STATES SHE IS FEELING BETTER SINCE COMING TO THE HOSPITAL. THE PT WAS SATURATING 89-92% ON THE 2L NC AND WAS INCREASED TO 3L NC TO MAINTAIN SP02 >93%. ON TELE THE PT IS SR W/ PAC'S HR 90'S. THE PT HAS HYPERTENSION AND WAS GIVEN 10MG IV HYDRALIZINE. HER BP INCREASED AFTER THE DOSE. THIS CUSHION SEWER CALLED DR. HENDRIX, THE ADMITTING HOSPITALIST, AND UPDATED HIM ON THE ADVERSE EFFECT OF HYDRALIZINE. DR. HENDRIX IS PULLING UP THE PT'S CHART AND WILL BE ADDING SOME ORAL MEDICATIONS. HE SAID HE DOES NOT WANT TO DROP HER BLOOD PRESSURE TO FAST. BLOOD PRESSURE Q15 AT THIS TIME. THE PT HAS A PURWICK SET UP TO SUCTION D/T SOB WITH ACITIVTY AND URGENCY OF VOIDING WHILE ON DIURETICS. SEE NOTES FOR UPDATES.
--- NOTE | 2024-10-19 15:07 | NUR ---
DR. HENDRIX CALLED BACAUSE THE PT IS HAVING A SECOND ANXIETY ATTACK SINCE COMING TO THE FLOOR. THE FIRST PANIC ATTACK WAS RESOLVED WITH A FAN AND DEEP BREATHING. SHE WAS NOT ABLE TO CALM DOWN WITH NONPHARMACUDICAL TECHNIQUES THIS TIME. DR. HENDRIX WILL PLACE PRN'S FOR ANXIETY.
[2024-10-19] MEDS ORDERED: LORazepam 0.5 MG Tab PO PRN (15:15)
[2024-10-19] MEDS ORDERED: Benzonatate 100 MG Cap PO PRN (15:35)
[2024-10-19] MEDS ORDERED: GuaiFENesin 600 MG TabCR PO SCH (16:00)
[2024-10-19] MEDS ORDERED: Losartan Potassium 25 MG Tab PO ONE (16:00)
[2024-10-19 16:41] LABS: Adenovirus Not Detected (NOT DETECT); Bordetella pertussis Not Detected (NOT DETECT); Chlamydophila pneumoniae Not Detected (NOT DETECT); Coronavirus 229E Not Detected (NOT DETECT); Coronavirus HKU1 Not Detected (NOT DETECT); Coronavirus NL63 Not Detected (NOT DETECT); Coronavirus OC43 Not Detected (NOT DETECT); Human Metapneumovirus Not Detected (NOT DETECT); Human Rhinovirus/Enterovirus Detected (NOT DETECT); Influenza A/2009-H1 Not Detected (NOT DETECT); Influenza A/H1 Not Detected (NOT DETECT); Influenza A/H3 Not Detected (NOT DETECT); Influenza B Not Detected (NOT DETECT); Mycoplasma pneumoniae Not Detected (NOT DETECT); Parainfluenza Virus 1 Not Detected (NOT DETECT); Parainfluenza Virus 2 Not Detected (NOT DETECT); Parainfluenza Virus 3 Not Detected (NOT DETECT); Parainfluenza Virus 4 Not Detected (NOT DETECT); Respiratory Syncytial Virus Not Detected (NOT DETECT); SARS-Cov-2 (COVID-19), BioFire Not Detected (NOT DETECT)
[2024-10-19 16:48] LABS: Bun/Creatinine Ratio 14.2 (12.0-20.0); Calcium, Blood 8.3 mg/dL (8.5-10.1); Creatinine, Blood 1.06 mg/dL (0.40-1.00)
[2024-10-19] MEDS ORDERED: Potassium Chloride 10 Meq Tablet SA PO SCH (17:00)
--- NOTE | 2024-10-19 17:03 | NUR ---
END OF SHIFT SUMMARY SEE PREVIOUS NOTE FOR DETAILS ON ANXIETY AND HYPERTENSION. THE PT REMAINS A&oX4, BUT HAS ANXIETY. SHE WAS MEDICATED PER EMAR WITH ATIVAN. PT'S ANXIETY HAS IMPROVED SINCE MEDICATION. SHE IS CURRENTLY ON 7L HFNC TO HELP MAINTAIN SP02 >93%. PT DENIES INCREASED SOB AT THIS TIME. SHE DID HAVE AN EPISODE WHERE SHE COUGHED UP BLOOD TINGED SPUTUM. SAMPLE SENT OT LAB. SHE HAD AN EPISODE OF NAUSEA AND WAS MEDICATED WITH ZOFRAN. HER BLOOD PRESSURE HAS IMPROVED. OT COZZAR ORDER HELD AT THIS TIME; DISCUSSED WITH SENIOR BUSINESS INTELLIGENCE ANALYST. THE PT'S DAUGHTER CAME TO THE ROOM AND WAS UPDATED ON CARE. WE ARE LIMITING VISITORS TO HELP WITH THE PT'S ANXIETY AT THIS TIME. SEE NOTES FOR UPDATES.
[2024-10-19] MEDS ORDERED: Albuterol 2.5 MG/3 ML VIAL INH PRN (17:25)
[2024-10-19] MEDS ORDERED: Furosemide 10 MG / ML 2ML Vial IV SCH (18:00)
[2024-10-19] MEDS ORDERED: Rivaroxaban 10 MG Tab PO SCH (18:00)
[2024-10-19 18:06] LABS: Bicarbonate Venous 25.3 mmol/L (24.0-30.0); PCO2 Venous 39.6 mmHg (38-42); pH Blood Venous 7.42 (7.34-7.37)
[2024-10-19] MEDS ORDERED: Metoprolol Tartrate 50 MG Tab PO SCH (21:00)
[2024-10-20] VITALS (8 sets, daily range): BP systolic 102–132; BP diastolic 55–90
[2024-10-20 03:42] LABS: BASOPHILS ABSOLUTE AUTO 0.04 K/mm3 (0.00-0.23); BASOPHILS PERCENT AUTO 1 % (0-2); EOSINOPHILS ABSOLUTE AUTO 0.12 K/mm3 (0.00-0.68); EOSINOPHILS PERCENT AUTO 2 % (0-6); Hemoglobin 11.6 g/dL (11.5-16.0); IMMATURE GRAN ABSOLUTE AUTO 0.02 K/mm3 (0.00-0.10); IMMATURE GRAN PERCENT AUTO 0 % (0-1); LYMPHOCYTES ABSOLUTE AUTO 1.65 K/mm3 (0.84-5.20); LYMPHOCYTES PERCENT AUTO 25 % (21-46); MONOCYTES ABSOLUTE AUTO 0.58 K/mm3 (0.16-1.47); MONOCYTES PERCENT AUTO 9 % (4-13); Mean Corpuscular HGB 30.2 pg (26.0-34.0); Mean Corpuscular HGB Conc 31.4 g/dL (31.5-36.5); Mean Corpuscular Volume 96 fL (80-100); Mean Platelet Volume 10.8 fL (9.1-12.4); NEUTROPHILS ABSOLUTE AUTO 4.28 K/mm3 (1.96-9.15); NEUTROPHILS PERCENT AUTO 64 % (41-73); Platelet Count 186 K/mm3 (150-400); Red Blood Cell Count 3.84 M/mm3 (3.80-5.20); White Blood Cell Count 6.69 K/mm3 (4.00-11.30)
[2024-10-20 04:00] LABS: Albumin, Blood 3.2 g/dL (3.4-5.0); Albumin/Globulin Ratio 1.2 (0.8-1.8); Bun/Creatinine Ratio 14.4 (12.0-20.0); Calcium, Blood 7.8 mg/dL (8.5-10.1); Creatinine, Blood 1.53 mg/dL (0.40-1.00); Globulin, Blood 2.7 g/dL (2.2-4.0); Potassium, Blood 3.7 mmol/L (3.5-5.5); Total Protein, Blood 5.9 g/dL (6.4-8.2)
[2024-10-20] MEDS ORDERED: Sertraline HCl 100 MG Tab PO SCH (09:00)
[2024-10-20] MEDS ORDERED: Losartan Potassium 25 MG Tab PO SCH (09:00)
[2024-10-20] MEDS ORDERED: AmLODIPine Besylate 5 MG Tab PO SCH ×2 (09:00)
[2024-10-20] MEDS ORDERED: Atorvastatin 10 MG Tab PO SCH (09:00)
[2024-10-20] MEDS ORDERED: Metoprolol Tartrate 25 MG Tab PO ONE (10:25)
[2024-10-20] MEDS ORDERED: Fluticasone 0.05% Nasal Spray SCH (17:15)
--- NOTE | 2024-10-20 17:29 | NUR ---
SHIFT SUMMERY: PT A&OX4. FOLLOWS COMMANDS AND MAKES NEEDS KNOWN TO STAFF. PT DENIES ANY CP, PRESSURE OR SOB THROUHGOUT SHIFT. PT IS NOW ON 4L NC AND IS MAINTAING O2 SAT >93%. PT IS STILL REFUSING TO USE CPAP DUE TO ANXIETY. PT WAS ABLE TO GET OUT OF BED TODAY AND WALK TO THE BATHROOM. PT WAS ABLE TO HAVE A BOWEL MOVEMENT TODAY. PT SAT UP IN THE CHAIR FOR A GOOD PART OF THE DAY WITH NO COMPLAINTS. PT REPORTED HAVING A HEADACHE THIS AFTERNOON THAT WAS NOT RELIEVED WITH TYLENOL AND ASKED FOR FLONASE FOR HER NASAL CONGESTION. ORDER OBTAINED FROM DR MONTALVO FOR FLONASE. NO OTHER SIGNIFICANT EVENTS HAPPENED DURING THIS SHIFT. WILL CONTINUE TO CARE FOR PT TILL END OF SHIFT.
[2024-10-20] MEDS ORDERED: Rivaroxaban 10 MG Tab PO SCH (18:00)
[2024-10-20] MEDS ORDERED: Metoprolol Tartrate 25 MG Tab PO SCH (21:00)
[2024-10-21 03:38] VITALS: BP 114/73
[2024-10-21 04:17] LABS: BASOPHILS ABSOLUTE AUTO 0.03 K/mm3 (0.00-0.23); BASOPHILS PERCENT AUTO 0 % (0-2); EOSINOPHILS ABSOLUTE AUTO 0.22 K/mm3 (0.00-0.68); EOSINOPHILS PERCENT AUTO 3 % (0-6); Hematocrit 34.2 % (33.0-51.0); IMMATURE GRAN ABSOLUTE AUTO 0.04 K/mm3 (0.00-0.10); IMMATURE GRAN PERCENT AUTO 1 % (0-1); LYMPHOCYTES ABSOLUTE AUTO 1.93 K/mm3 (0.84-5.20); LYMPHOCYTES PERCENT AUTO 28 % (21-46); MONOCYTES ABSOLUTE AUTO 0.55 K/mm3 (0.16-1.47); MONOCYTES PERCENT AUTO 8 % (4-13); Mean Corpuscular HGB 30.6 pg (26.0-34.0); Mean Corpuscular HGB Conc 32.2 g/dL (31.5-36.5); Mean Corpuscular Volume 95 fL (80-100); NEUTROPHILS ABSOLUTE AUTO 4.23 K/mm3 (1.96-9.15); NEUTROPHILS PERCENT AUTO 60 % (41-73); Platelet Count 161 K/mm3 (150-400); RDW Coefficient Variation 14.7 % (11.7-14.2); RDW Standard Deviation 51.5 fL (35.1-46.3)
[2024-10-21 04:31] LABS: Bun/Creatinine Ratio 20.4 (12.0-20.0); Calcium, Blood 7.8 mg/dL (8.5-10.1); Creatinine, Blood 1.57 mg/dL (0.40-1.00); Potassium, Blood 3.8 mmol/L (3.5-5.5)
--- NOTE | 2024-10-21 06:06 | NUR ---
PT RESTING COMFORTABLY IN BED THROUGHOUT NIGHT. PT C/O HEADACHES THROUGHOUT NIGHT, PRN TYLENOL GIVEN WITH GOOD EFFECT. PT NSR @ 65. BPs CONTROLLED. SPO2 92-96% ON 4L NC WHILE SLEEPING. PT UP TO BATHROOM WITH ONE PERSON ASSIST. PT DESATS TO 88% UPON EXERTION ON 4L. NO FURTHER QUESTIONS OR CONCERNS AT THIS TIME. WILL CONTINUE TO MONITOR UNTIL SHIFT CHANGE.
[2024-10-21 07:51] VITALS: BP 115/83
[2024-10-21 11:27] VITALS: BP 118/72
[2024-10-21 16:24] VITALS: BP 135/80
--- NOTE | 2024-10-21 19:33 | NUR ---
Pt reports that she has had a good day. Pt has been OOB to the chair for much of the day. Pt continues to need supplemental O2 but was turned down to 2L. Pt reports each time she walks to the bathroom her breathing is improving and taking less time to recover. MD ordered an overnight oximetry test for this evening, RT was notified. Daughter was here this afternoon and has a plan to take Pt home with her for a couple of days. Pt has been able to ambulate to the bathroom independently this afternoon. Pt is able to make needs known, call light is within reach.
[2024-10-21 19:57] VITALS: BP 122/70
--- NOTE | 2024-10-21 23:30 | NUR ---
PT TRANSFERRED TO MEDSUR UNIT. PTS VSS ON 2LNC. REPORT GIVEN TO [facility] NURSE.
[2024-10-21 23:32] VITALS: BP 125/65
[2024-10-22 04:07] VITALS: BP 117/98
--- NOTE | 2024-10-22 04:27 | NUR ---
SHIFT SUMMARY PT TRANSFERED FROM PCU AROUND 2300. ORIENTED TO ROOM. PT A&Ox4. MEDICATED ONCE PER EMAR FOR HEADACHE. PT STARTED ON SLEEP STUDY IN PCU AND CONTINUED ON MEDICAL FLOOR. RT AT BEDSIDE T/O NIGHT. ON 2L OF OXYGEN. VSS. BED IN LOWEST POSITION AND CALL LIGHT IN REACH.
[2024-10-22 06:16] LABS: BASOPHILS ABSOLUTE AUTO 0.03 K/mm3 (0.00-0.23); BASOPHILS PERCENT AUTO 1 % (0-2); EOSINOPHILS ABSOLUTE AUTO 0.22 K/mm3 (0.00-0.68); EOSINOPHILS PERCENT AUTO 4 % (0-6); Hematocrit 33.1 % (33.0-51.0); Hemoglobin 10.7 g/dL (11.5-16.0); IMMATURE GRAN ABSOLUTE AUTO 0.02 K/mm3 (0.00-0.10); IMMATURE GRAN PERCENT AUTO 0 % (0-1); LYMPHOCYTES ABSOLUTE AUTO 1.15 K/mm3 (0.84-5.20); LYMPHOCYTES PERCENT AUTO 21 % (21-46); MONOCYTES ABSOLUTE AUTO 0.47 K/mm3 (0.16-1.47); MONOCYTES PERCENT AUTO 9 % (4-13); Mean Corpuscular HGB 30.7 pg (26.0-34.0); Mean Corpuscular HGB Conc 32.3 g/dL (31.5-36.5); Mean Corpuscular Volume 95 fL (80-100); Mean Platelet Volume 11.1 fL (9.1-12.4); NEUTROPHILS ABSOLUTE AUTO 3.53 K/mm3 (1.96-9.15); NEUTROPHILS PERCENT AUTO 65 % (41-73); Platelet Count 166 K/mm3 (150-400); RDW Coefficient Variation 14.3 % (11.7-14.2); RDW Standard Deviation 49.4 fL (35.1-46.3); Red Blood Cell Count 3.49 M/mm3 (3.80-5.20); White Blood Cell Count 5.42 K/mm3 (4.00-11.30)
[2024-10-22 06:50] LABS: Albumin/Globulin Ratio 1.1 (0.8-1.8); Bilirubin, Total 0.6 mg/dL (0.1-1.0); Bun/Creatinine Ratio 21.1 (12.0-20.0); Calcium, Blood 8.3 mg/dL (8.5-10.1); Creatinine, Blood 1.23 mg/dL (0.40-1.00); Globulin, Blood 2.7 g/dL (2.2-4.0); Potassium, Blood 3.9 mmol/L (3.5-5.5); Total Protein, Blood 5.7 g/dL (6.4-8.2)
[2024-10-22 07:47] VITALS: BP 141/78
[2024-10-22] MEDS ORDERED: Furosemide 40 MG Tab PO SCH (09:00)
[2024-10-22] MEDS ORDERED: FURO40 PO (09:52)
[2024-10-22] MEDS ORDERED: BENZ100A PO (09:52)
[2024-10-22] MEDS ORDERED: Nasal Spray30 M1 (10:11)
--- NOTE | 2024-10-22 13:28 | NUR ---
THIS SHAREPOINT MANAGER AGREES WITH ALL NOTES AND ASSESSMENTS BY LUCIE SALGADO.
--- NOTE | 2024-10-22 13:29 | NUR ---
PT HAD ALL PAPERWORK REVIEWED AND EDCUCATIONAL MATERIAL SENT WITH HER. PT AOX4 AND COOPERATIVE OF CARE. PT INDPENDENT IN ROOM. PT HAD O2 DELIVERED PRIOR TO DISCHARGE AND WAS ESCORTED OUT VIA WHEELCHAIR. NO DISTRESS NOTED.
[2024-10-22] MEDS ORDERED: Rivaroxaban 10 MG Tab PO SCH (18:00)
== END 2024-10-22 13:31 | disposition home or self-care (01) | DRG 291 ==
LOC: ER 09:07 → PCU 09:08 → MEDS 10-22 00:19
PROVIDERS: Internal Medicine; Physician Assistant; ADMIT Student in an Organized Health Care Education/Training Program
PROC: 5A0935A Assistance with Respiratory Ventilation, Less than 24 Consecutive Hours, High Flow/Velocity Cannula (ICD-10-PCS; principal; 2024-10-19)
DX: I13.0 Hypertensive heart and chronic kidney disease with heart failure and stage 1 through stage 4 chronic kidney disease, or unspecified chronic kidney disease (principal); J96.01 Acute respiratory failure with hypoxia; E87.0 Hyperosmolality and hypernatremia; Z68.41 Body mass index [BMI] 40.0-44.9, adult; E87.6 Hypokalemia; N18.30 Chronic kidney disease, stage 3 unspecified; I48.0 Paroxysmal atrial fibrillation; E66.9 Obesity, unspecified; E78.5 Hyperlipidemia, unspecified; F10.10 Alcohol abuse, uncomplicated; I16.0 Hypertensive urgency; F40.240 Claustrophobia; B97.89 Other viral agents as the cause of diseases classified elsewhere; B97.10 Unspecified enterovirus as the cause of diseases classified elsewhere; G47.30 Sleep apnea, unspecified; E11.22 Type 2 diabetes mellitus with diabetic chronic kidney disease; Z87.81 Personal history of (healed) traumatic fracture; Z79.891 Long term (current) use of opiate analgesic; Z79.899 Other long term (current) drug therapy; Z79.01 Long term (current) use of anticoagulants; Z90.710 Acquired absence of both cervix and uterus; Z98.890 Other specified postprocedural states; Z95.0 Presence of cardiac pacemaker; Z99.81 Dependence on supplemental oxygen
CPT/HCPCS: 0202U; 36415; 71046; 80048; 80053; 82803; 82947; 83735; 83880; 84100; 85025; 85379; 87070; 87205; 93005; 93010; 94761; 94762; 96365; 96366; 96375; 96376; 99285-25; A9270; G0378; J0360; J1940; J2405; J3480

== ENCOUNTER 2024-11-06 20:15 | Observation (INO) | payer MEDICARE ==
[~2024-11-06] VITALS: Ht 167.6 cm; Wt 120.3 kg
[~2024-11-06 20:15] MED LIST changes: +ALBU90OI6 INH; +BENZ100A PO; +BUPR150ER PO; +FURO40 PO; +MISCINPPO PO; +Nasal Spray30 M1; +POTCHL20ER PO; +SM CALCIUM PO; +VITAMIN D31000 UNI1 PO
[2024-11-06 22:16] LABS: BASOPHILS ABSOLUTE AUTO 0.08 K/mm3 (0.00-0.23); BASOPHILS PERCENT AUTO 1 % (0-2); EOSINOPHILS ABSOLUTE AUTO 0.15 K/mm3 (0.00-0.68); EOSINOPHILS PERCENT AUTO 2 % (0-6); Hematocrit 38.6 % (33.0-51.0); Hemoglobin 12.4 g/dL (11.5-16.0); IMMATURE GRAN ABSOLUTE AUTO 0.03 K/mm3 (0.00-0.10); IMMATURE GRAN PERCENT AUTO 0 % (0-1); LYMPHOCYTES ABSOLUTE AUTO 1.93 K/mm3 (0.84-5.20); LYMPHOCYTES PERCENT AUTO 24 % (21-46); MONOCYTES ABSOLUTE AUTO 0.63 K/mm3 (0.16-1.47); MONOCYTES PERCENT AUTO 8 % (4-13); Mean Corpuscular HGB 30.5 pg (26.0-34.0); Mean Corpuscular HGB Conc 32.1 g/dL (31.5-36.5); Mean Corpuscular Volume 95 fL (80-100); NEUTROPHILS ABSOLUTE AUTO 5.36 K/mm3 (1.96-9.15); NEUTROPHILS PERCENT AUTO 66 % (41-73); Platelet Count 251 K/mm3 (150-400); RDW Coefficient Variation 14.3 % (11.7-14.2); RDW Standard Deviation 49.7 fL (35.1-46.3); Red Blood Cell Count 4.07 M/mm3 (3.80-5.20); White Blood Cell Count 8.18 K/mm3 (4.00-11.30)
[2024-11-06 22:57] LABS: Albumin, Blood 3.7 g/dL (3.4-5.0); Albumin/Globulin Ratio 1.2 (0.8-1.8); Bilirubin, Total 0.5 mg/dL (0.1-1.0); Bun/Creatinine Ratio 17.3 (12.0-20.0); Calcium, Blood 8.7 mg/dL (8.5-10.1); Creatinine, Blood 1.33 mg/dL (0.40-1.00); Globulin, Blood 3.2 g/dL (2.2-4.0); Potassium, Blood 3.5 mmol/L (3.5-5.5); Total Protein, Blood 6.9 g/dL (6.4-8.2)
[2024-11-06 23:27] LABS: Magnesium, Blood 2.4 mg/dL (1.6-2.4)
[2024-11-07] VITALS (9 sets, daily range): BP systolic 115–135; BP diastolic 81–102
[2024-11-07 00:02] LABS: Influenza A, PCR NEGATIVE (NEGATIVE); Influenza B, PCR NEGATIVE (NEGATIVE); Resp Syncytial Virus, PCR NEGATIVE (NEGATIVE); SARS-Cov-2 (COVID-19) PCR, MMC NEGATIVE (NEGATIVE)
[2024-11-07] MEDS ORDERED: Digoxin 0.25 MG/ML 2ML Amp IV ONE (00:15)
[2024-11-07] MEDS ORDERED: Diltiazem HCl 5 MG / ML 5ML Vial IV ONE (00:20)
[2024-11-07] MEDS ORDERED: FLU VACC TS2024-25(6MOS UP)/PF 45 MCG/0.5 ML SYRINGE IM SCH (01:35)
[2024-11-07] MEDS ORDERED: Potassium Chloride 10 Meq Tablet SA PO ONE (01:51)
[2024-11-07 02:13] LABS: Thyroid Stimulating Hormone 1.06 uIU/mL (0.360-4.800)
[2024-11-07] MEDS ORDERED: SPIR25 PO (02:28)
[2024-11-07 03:41] LABS: BASOPHILS ABSOLUTE AUTO 0.06 K/mm3 (0.00-0.23); BASOPHILS PERCENT AUTO 1 % (0-2); EOSINOPHILS ABSOLUTE AUTO 0.18 K/mm3 (0.00-0.68); EOSINOPHILS PERCENT AUTO 2 % (0-6); Hematocrit 37.9 % (33.0-51.0); Hemoglobin 12.2 g/dL (11.5-16.0); IMMATURE GRAN ABSOLUTE AUTO 0.04 K/mm3 (0.00-0.10); IMMATURE GRAN PERCENT AUTO 1 % (0-1); LYMPHOCYTES ABSOLUTE AUTO 2.57 K/mm3 (0.84-5.20); LYMPHOCYTES PERCENT AUTO 34 % (21-46); MONOCYTES ABSOLUTE AUTO 0.54 K/mm3 (0.16-1.47); MONOCYTES PERCENT AUTO 7 % (4-13); Mean Corpuscular HGB 30.5 pg (26.0-34.0); Mean Corpuscular HGB Conc 32.2 g/dL (31.5-36.5); Mean Corpuscular Volume 95 fL (80-100); Mean Platelet Volume 10.7 fL (9.1-12.4); NEUTROPHILS ABSOLUTE AUTO 4.08 K/mm3 (1.96-9.15); NEUTROPHILS PERCENT AUTO 55 % (41-73); Platelet Count 215 K/mm3 (150-400); RDW Coefficient Variation 14.3 % (11.7-14.2); RDW Standard Deviation 49.1 fL (35.1-46.3); White Blood Cell Count 7.47 K/mm3 (4.00-11.30)
[2024-11-07 04:00] LABS: Albumin, Blood 3.5 g/dL (3.4-5.0); Albumin/Globulin Ratio 1.1 (0.8-1.8); Bilirubin, Total 0.7 mg/dL (0.1-1.0); Bun/Creatinine Ratio 17.2 (12.0-20.0); Calcium, Blood 8.8 mg/dL (8.5-10.1); Creatinine, Blood 1.28 mg/dL (0.40-1.00); Globulin, Blood 3.1 g/dL (2.2-4.0); Potassium, Blood 3.6 mmol/L (3.5-5.5); Total Protein, Blood 6.6 g/dL (6.4-8.2)
[2024-11-07] MEDS ORDERED: Enoxaparin 40 MG/0.4 ML SYR SC SCH (09:00)
[2024-11-07] MEDS ORDERED: Rivaroxaban 10 MG Tab PO SCH ×2 (09:00)
[2024-11-07] MEDS ORDERED: Furosemide 40 MG Tab PO SCH (09:30)
[2024-11-07] MEDS ORDERED: Metoprolol Tartrate 50 MG Tab PO SCH (10:00)
[2024-11-07] MEDS ORDERED: Potassium Chloride 20 MEQ TabCR PO ONE (10:00)
--- NOTE | 2024-11-07 15:41 | NUR ---
DISCHARGE SUMMARY PT A&O X4, CALM, COOPERATIVE TO CARE. SKIN INTACT, NO BREAKDOWN NOTED. AFIB IN THE 80'S, DENIES CP/PRESSURE, NUMB/TINGLING, SBP STABLE. O2 >92% ON 2L VIA NC, 2L NC AT BASELINE PRN, SHE DENIES SOB. PT UP TO TOILET WITH SBA, TOLERATING WELL. HR CONTROLLED IN THE 80'S T/O SHIFT, SBP STABLE. PROVIDER NOTIFIED. PROVIDER TO BEDSIDE TO DISCUSS PLAN. PT AGREEABLE TO D/C HOME, ORDERS PLACED. REVIEWED D/C INSTRUCTIONS WITH PT. PT DENIES ANY QUESTIONS OR CONCERNS. LEFT AC PIV REMOVED. PRESSURE APPLIED, DRESSED WITH GAUZE AND COBAN, PT TOLERATED WELL. PTS PONCHO BROUGHT HOME PORTABLE O2 TANK, PT LEFT ON BASELINE 2L VIA HOME TANK. PT LEFT VIA WHEELCHAIT WITH THIS RN.
[2024-11-07] MEDS ORDERED: Sertraline HCl 100 MG Tab PO SCH (21:00)
[2024-11-08] MEDS ORDERED: buPROPion HCL 150 MG TAB.SR.12H PO SCH (09:00)
[2024-11-08] MEDS ORDERED: Atorvastatin 10 MG Tab PO SCH (09:00)
== END 2024-11-07 15:20 | disposition home or self-care (01) ==
LOC: ER 20:15 → ICUE 20:16 → PCU 20:16 → ICUE 11-07 02:50
PROVIDERS: Emergency Medicine; Family Medicine; Student in an Organized Health Care Education/Training Program; ADMIT Internal Medicine
DX: I48.91 Unspecified atrial fibrillation (principal); I11.0 Hypertensive heart disease with heart failure; I50.30 Unspecified diastolic (congestive) heart failure; R79.89 Other specified abnormal findings of blood chemistry; E87.6 Hypokalemia; E11.9 Type 2 diabetes mellitus without complications; Z66 Do not resuscitate
CPT/HCPCS: 0241U; 36415; 71046; 80053; 83735; 83880; 84443; 84484; 85025; 93005; 93010; 96374; 96375; 99285-25; A9270; G0378; J1160

== ENCOUNTER 2025-08-20 19:09 | Emergency (ER) | payer MEDICARE ==
[~2025-08-20] VITALS: Ht 167.6 cm; Wt 116.1 kg
[~2025-08-20 19:09] MED LIST changes: +SPIR25 PO
[2025-08-20 19:55] LABS: BASOPHILS ABSOLUTE AUTO 0.03 K/mm3 (0.00-0.23); BASOPHILS PERCENT AUTO 0 % (0-2); EOSINOPHILS ABSOLUTE AUTO 0.12 K/mm3 (0.00-0.68); EOSINOPHILS PERCENT AUTO 1 % (0-6); Hematocrit 38.6 % (33.0-51.0); Hemoglobin 13.0 g/dL (11.5-16.0); IMMATURE GRAN ABSOLUTE AUTO 0.07 K/mm3 (0.00-0.10); IMMATURE GRAN PERCENT AUTO 1 % (0-1); LYMPHOCYTES ABSOLUTE AUTO 2.04 K/mm3 (0.84-5.20); LYMPHOCYTES PERCENT AUTO 24 % (21-46); MONOCYTES ABSOLUTE AUTO 0.78 K/mm3 (0.16-1.47); MONOCYTES PERCENT AUTO 9 % (4-13); Mean Corpuscular HGB Conc 33.7 g/dL (31.5-36.5); Mean Corpuscular Volume 89 fL (80-100); NEUTROPHILS ABSOLUTE AUTO 5.45 K/mm3 (1.96-9.15); NEUTROPHILS PERCENT AUTO 64 % (41-73); NRBC ABSOLUTE 0.00 K/mm3 (0.00-0.02); NRBC Auto 0.0 /100 WBC (0.0-0.2); Platelet Count 219 K/mm3 (150-400); RDW Coefficient Variation 14.1 % (11.7-14.2); RDW Standard Deviation 46.1 fL (35.1-46.3)
[2025-08-20 20:16] LABS: Alanine Aminotransfer (ALT/SGP 20.0 U/L (12-78); Albumin, Blood 2.8 g/dL (3.4-5.0); Albumin/Globulin Ratio 0.8 (0.8-1.8); Anion Gap 10.0 mmol/L (3-11); Aspartate Aminotrans (AST/SGOT 19.0 U/L (12-37); Bilirubin, Total 0.7 mg/dL (0.1-1.0); Blood Urea Nitrogen 34.0 mg/dL (8-24); CO2, Blood 26.0 mmol/L (21-32); Calcium, Blood 9.1 mg/dL (8.5-10.1); Chloride, Blood 107.0 mmol/L (98-108); Creatinine, Blood 1.82 mg/dL (0.40-1.00); Globulin, Blood 3.5 g/dL (2.2-4.0); Glucose, Blood 217.0 mg/dL (70-99); Potassium, Blood 3.1 mmol/L (3.5-5.5); Sodium, Blood 140.0 mmol/L (136-145); Total Protein, Blood 6.3 g/dL (6.4-8.2)
[2025-08-20 20:32] LABS: Influenza A, PCR NEGATIVE (NEGATIVE); Influenza B, PCR NEGATIVE (NEGATIVE); Resp Syncytial Virus, PCR NEGATIVE (NEGATIVE)
[2025-08-20 21:52] LABS: SARS-Cov-2 (COVID-19) PCR, MMC POSITIVE (NEGATIVE)
[2025-08-20 23:36] VITALS: BP 111/81
== END 2025-08-20 23:37 | disposition home or self-care (01) ==
LOC: ER 19:09
PROVIDERS: Student in an Organized Health Care Education/Training Program
DX: U07.1 COVID-19 (principal); I10 Essential (primary) hypertension; I48.91 Unspecified atrial fibrillation; E11.9 Type 2 diabetes mellitus without complications; Z79.01 Long term (current) use of anticoagulants; Z79.899 Other long term (current) drug therapy
CPT/HCPCS: 71046; 80053; 83880; 84484; 85025; 87637; 93005; 93010; 99285-25

== ENCOUNTER 2025-09-26 06:14 | Inpatient (IN) | payer MEDICARE ==
[~2025-09-26] VITALS: Ht 167.6 cm; Wt 82.1 kg
[2025-09-26] VITALS (11 sets, daily range): BP systolic 122–157; BP diastolic 65–83
[2025-09-26] MEDS ORDERED: NS 1,000 ML IV SCH ×3 (06:45→09:35)
[2025-09-26 07:11] LABS: Source, Urine Clean Catch
[2025-09-26 07:14] LABS: Bilirubin, Urine Neg (Neg); Color, Urine Red (P-Yellow); Glucose Qualitative, Urine Neg (Neg); Ketones, Urine Neg (Neg); Leukocyte Esterase, Urine 3+ (Neg); Protein, Urine 3+ (Neg); Specific Gravity, Urine 1.010 (1.003-1.022); Urobilinogen, Urine NORM (Normal)
[2025-09-26 07:22] LABS: Red Blood Cells, Urine TNTC /hpf (0-2); White Blood Cells, Urine 50-100 /hpf (0-5)
[2025-09-26] MEDS ORDERED: CefTRIAXone Sodium 1,000 MG in NS 100 ML IV ONE ×2 (07:25→09:40)
[2025-09-26 08:10] LABS: BASOPHILS ABSOLUTE AUTO 0.04 K/mm3 (0.00-0.23); BASOPHILS PERCENT AUTO 0 % (0-2); EOSINOPHILS ABSOLUTE AUTO 0.12 K/mm3 (0.00-0.68); EOSINOPHILS PERCENT AUTO 1 % (0-6); Hematocrit 35.8 % (33.0-51.0); Hemoglobin 11.7 g/dL (11.5-16.0); IMMATURE GRAN ABSOLUTE AUTO 0.08 K/mm3 (0.00-0.10); IMMATURE GRAN PERCENT AUTO 1 % (0-1); LYMPHOCYTES ABSOLUTE AUTO 1.33 K/mm3 (0.84-5.20); LYMPHOCYTES PERCENT AUTO 10 % (21-46); MONOCYTES ABSOLUTE AUTO 0.87 K/mm3 (0.16-1.47); MONOCYTES PERCENT AUTO 6 % (4-13); Mean Corpuscular HGB Conc 32.7 g/dL (31.5-36.5); Mean Corpuscular Volume 92 fL (80-100); NEUTROPHILS ABSOLUTE AUTO 11.08 K/mm3 (1.96-9.15); NEUTROPHILS PERCENT AUTO 82 % (41-73); NRBC ABSOLUTE 0.00 K/mm3 (0.00-0.02); NRBC Auto 0.0 /100 WBC (0.0-0.2); Platelet Count 244 K/mm3 (150-400); RDW Coefficient Variation 14.2 % (11.7-14.2); RDW Standard Deviation 47.4 fL (35.1-46.3)
[2025-09-26 08:30] LABS: Alanine Aminotransfer (ALT/SGP 24.0 U/L (12-78); Albumin, Blood 3.3 g/dL (3.4-5.0); Albumin/Globulin Ratio 0.9 (0.8-1.8); Anion Gap 4.0 mmol/L (3-11); Aspartate Aminotrans (AST/SGOT 13.0 U/L (12-37); Bilirubin, Total 0.6 mg/dL (0.1-1.0); Blood Urea Nitrogen 16.0 mg/dL (8-24); CO2, Blood 31.0 mmol/L (21-32); Calcium, Blood 8.8 mg/dL (8.5-10.1); Chloride, Blood 108.0 mmol/L (98-108); Creatinine, Blood 1.47 mg/dL (0.40-1.00); Globulin, Blood 3.5 g/dL (2.2-4.0); Glucose, Blood 138.0 mg/dL (70-99); Magnesium, Blood 1.9 mg/dL (1.6-2.4); Potassium, Blood 4.0 mmol/L (3.5-5.5); Sodium, Blood 139.0 mmol/L (136-145); Total Protein, Blood 6.8 g/dL (6.4-8.2)
[2025-09-26] MEDS ORDERED: FentaNYL Citrate 50 MCG/ML 2 ML Injection IV PRN ×3 (09:35→18:40)
[2025-09-26] MEDS ORDERED: FLU VACC TS2025(65UP)/MF59C/PF 45 MCG/0.5 ML SYRINGE IM SCH (09:35)
[2025-09-26] MEDS ORDERED: METF500 PO (09:48)
[2025-09-26] MEDS ORDERED: XARELTO20 MG PO (09:48)
[2025-09-26] MEDS ORDERED: ALEN10 PO (09:51)
--- NOTE | 2025-09-26 18:13 | NUR ---
SHIFT SUMMARY PT A&OX4. PT ADMITTED DUE TO SEPSIS SECONDARY TO UTI. PT ADMITTED AT 1150. PT IS SBA. PT REPORTS USING WALKER AT HOME AT TIMES. PT REPORTS NO SOB/CHEST PAIN. PT REPORTS L FLANK AND BACK PAIN. PT REPORTS URINARY FREQUENCY. PT REPORTS URGENCY, PERWICK WAS IN PLACE ON ADMISSION DUE TO URGENCY AND WEAKNESS, PT HAS ATTENDS ON. PERWICK NOT IN PLACE. PT HAS RED URINE. PAIN MANAGED PER EMAR. PT NPO, PT STATES HASNT TAKE HOME MEDS SINCE YESTERDAY. ADMISSION ASSESSMENT COMPLETE. MED REC COMPLETE BY BREAK RN. COPY OF MEDS PT TAKES IN CHART. PT ORIENTED TO FALL PRECAUTIONS/CALL LIGHT/ UNIT. PT REPORTS "ENVIRONMENTAL EDUCATOR REPORTED WAITING FOR LAB WORK TO SEE IF PT NEEDS TO BE ON POTASSIUM, LASIX AND ALDACTONE. I HAVNT BEEN TAKING THEM." PT REPORTS HAS PACEMAKER. 2 RN SKIN CHECK COMPLETE WITH MARLY FAULKNER. ANTIEMBOLIC STOCKINGS ON. NS RUNNING AT 100ML/HR, PT IN BED, BED IN LOWEST POSITION, LOCKED, CALL LIGHT IN REACH. AWAITING SURGERY WITH DR. BEYER.
[2025-09-26] MEDS ORDERED: Ondansetron HCl 2 MG / ML 2ML Vial IV PRN (18:35)
[2025-09-26] MEDS ORDERED: Albuterol 2.5 MG/3 ML VIAL INH PRN (18:40)
[2025-09-26] MEDS ORDERED: HYDROmorphone HCl/Pf 1MG SYR IV PRN (18:40)
[2025-09-26] MEDS ORDERED: FentaNYL Citrate 50 MCG/ML 2 ML Injection ONE (19:20)
[2025-09-26] MEDS ORDERED: Lactobacil 2-S.Thermo-Bifido 1 1 Cap PO SCH (21:00)
--- NOTE | 2025-09-26 21:04 | NUR ---
PT DOWN TO PACU. TRANSPORTED VIA GURNEY BY COPING MACHINE ASSEMBLER AND PACU STAFF.
--- NOTE | 2025-09-26 23:16 | NUR ---
PT BACK FROM SURGERY AND ASSUMING CARE OF PT.
[2025-09-27 00:36] VITALS: BP 127/83
[2025-09-27 02:11] VITALS: BP 126/68
[2025-09-27 05:05] LABS: BASOPHILS ABSOLUTE AUTO 0.03 K/mm3 (0.00-0.23); BASOPHILS PERCENT AUTO 0 % (0-2); EOSINOPHILS ABSOLUTE AUTO 0.00 K/mm3 (0.00-0.68); EOSINOPHILS PERCENT AUTO 0 % (0-6); Hematocrit 34.4 % (33.0-51.0); Hemoglobin 10.8 g/dL (11.5-16.0); IMMATURE GRAN ABSOLUTE AUTO 0.09 K/mm3 (0.00-0.10); IMMATURE GRAN PERCENT AUTO 1 % (0-1); LYMPHOCYTES ABSOLUTE AUTO 0.89 K/mm3 (0.84-5.20); LYMPHOCYTES PERCENT AUTO 9 % (21-46); MONOCYTES ABSOLUTE AUTO 0.17 K/mm3 (0.16-1.47); MONOCYTES PERCENT AUTO 2 % (4-13); Mean Corpuscular HGB Conc 31.4 g/dL (31.5-36.5); Mean Corpuscular Volume 94 fL (80-100); NEUTROPHILS ABSOLUTE AUTO 8.61 K/mm3 (1.96-9.15); NEUTROPHILS PERCENT AUTO 88 % (41-73); NRBC ABSOLUTE 0.00 K/mm3 (0.00-0.02); NRBC Auto 0.0 /100 WBC (0.0-0.2); Platelet Count 230 K/mm3 (150-400); RDW Coefficient Variation 14.3 % (11.7-14.2); RDW Standard Deviation 48.8 fL (35.1-46.3)
[2025-09-27 05:07] VITALS: BP 136/80
[2025-09-27 05:37] LABS: Anion Gap 8.0 mmol/L (3-11); Blood Urea Nitrogen 14.0 mg/dL (8-24); CO2, Blood 24.0 mmol/L (21-32); Calcium, Blood 7.9 mg/dL (8.5-10.1); Chloride, Blood 112.0 mmol/L (98-108); Creatinine, Blood 1.33 mg/dL (0.40-1.00); Glucose, Blood 239.0 mg/dL (70-99); Potassium, Blood 3.8 mmol/L (3.5-5.5); Sodium, Blood 140.0 mmol/L (136-145)
[2025-09-27 07:45] VITALS: BP 138/77
[2025-09-27] MEDS ORDERED: CefTRIAXone Sodium 2,000 MG in NS 100 ML IV SCH (09:00)
[2025-09-27 15:56] VITALS: BP 131/63
--- NOTE | 2025-09-27 19:11 | NUR ---
SHIFT SUMMARY PT A&OX4, VSS, NON-TELE, RA DURING DAY, CPAP HS WITH 2L O2 BLEED IN, CONT PULSE OX SATS MAINTAINED>91%, IND IN ROOM TO BATHROOM. DENIED PAIN. HEMATURIA CONTINUES, MD AWARE. AWAITING FINAL URINE CULTURE RESULTS PRIOR TO D/C. PT PLEASANT AND COOPERATIVE WITH ALL CARES, CALL LIGHT IN REACH.
[2025-09-27 20:24] VITALS: BP 136/65
[2025-09-28 03:07] VITALS: BP 139/81
[2025-09-28 05:28] LABS: Anion Gap 8.0 mmol/L (3-11); Blood Urea Nitrogen 20.0 mg/dL (8-24); CO2, Blood 23.0 mmol/L (21-32); Calcium, Blood 7.9 mg/dL (8.5-10.1); Chloride, Blood 113.0 mmol/L (98-108); Creatinine, Blood 1.56 mg/dL (0.40-1.00); Glucose, Blood 149.0 mg/dL (70-99); Potassium, Blood 3.9 mmol/L (3.5-5.5); Sodium, Blood 140.0 mmol/L (136-145)
[2025-09-28 07:49] VITALS: BP 146/85
[2025-09-28] MEDS ORDERED: AMOCLA875 PO (10:22)
[2025-09-28] MEDS ORDERED: VISBIOME 112.51 EACH PO (10:22)
== END 2025-09-28 14:05 | disposition home or self-care (01) | DRG 854 ==
LOC: ER 06:14 → MEDS 09:32
PROVIDERS: Emergency Medicine; Urology; ADMIT Internal Medicine
PROC: BT1F1ZZ Fluoroscopy of Left Kidney, Ureter and Bladder using Low Osmolar Contrast (ICD-10-PCS; 2025-09-26)
PROC: 3E03329 Introduction of Other Anti-infective into Peripheral Vein, Percutaneous Approach (ICD-10-PCS; 2025-09-26)
PROC: 3E02340 Introduction of Influenza Vaccine into Muscle, Percutaneous Approach (ICD-10-PCS; 2025-09-26)
PROC: 0T778DZ Dilation of Left Ureter with Intraluminal Device, Via Natural or Artificial Opening Endoscopic (ICD-10-PCS; principal; 2025-09-26 18:00)
DX: A41.51 Sepsis due to Escherichia coli [E. coli] (principal); I13.0 Hypertensive heart and chronic kidney disease with heart failure and stage 1 through stage 4 chronic kidney disease, or unspecified chronic kidney disease; N13.6 Pyonephrosis; I50.32 Chronic diastolic (congestive) heart failure; Z68.41 Body mass index [BMI] 40.0-44.9, adult; I48.0 Paroxysmal atrial fibrillation; G47.33 Obstructive sleep apnea (adult) (pediatric); N18.30 Chronic kidney disease, stage 3 unspecified; E66.9 Obesity, unspecified; E78.5 Hyperlipidemia, unspecified; F32.A Depression, unspecified; D50.9 Iron deficiency anemia, unspecified; F10.90 Alcohol use, unspecified, uncomplicated; E11.22 Type 2 diabetes mellitus with diabetic chronic kidney disease; Z99.81 Dependence on supplemental oxygen; Z23 Encounter for immunization; Z87.81 Personal history of (healed) traumatic fracture; Z98.890 Other specified postprocedural states; Z79.01 Long term (current) use of anticoagulants; Z99.89 Dependence on other enabling machines and devices; Z79.899 Other long term (current) drug therapy; Z90.710 Acquired absence of both cervix and uterus; Z79.84 Long term (current) use of oral hypoglycemic drugs
CPT/HCPCS: 36415; 74176; 80048; 80053; 81001; 83036; 83605; 83735; 85025; 87077; 87086; 87186; 94660; 94762; 96365; 99285-25; A6590; A9270; C1758; C1769; C2617; J0696; J2704; J3010; J7030